=== PATIENT | male | born 1985 | race Two or more races ===

== ENCOUNTER 2018-04-03 16:13 | Emergency (ER) | payer OTHER ==
[~2018-04-03] VITALS: Ht 177.8 cm; Wt 78.6 kg
[2018-04-03] MEDS ORDERED: KETOROLAC 30 MG/1 ML ONE (17:57)
[2018-04-03 18:01] VITALS: BP 117/64
[2018-04-03] MEDS ORDERED: KETOROLAC 60 MG/2 ML IM ONE (18:30)
== END 2018-04-03 18:52 | disposition home or self-care (01) ==
LOC: ED 18:46
DX: S39.012A Strain of muscle, fascia and tendon of lower back, initial encounter (principal); X58.XXXA Exposure to other specified factors, initial encounter; Y93.89 Activity, other specified; Y92.89 Other specified places as the place of occurrence of the external cause; Y99.8 Other external cause status
CPT/HCPCS: 72100; 96372; 99283; J1885